=== PATIENT | female | born 1955 ===

== ENCOUNTER → 2016-07-05 | Outpatient (CLI) | payer OTHER | LOC: MAMMO 09:10 | DX: Z12.31 Encounter for screening mammogram for malignant neoplasm of breast (principal) | CPT/HCPCS: G0202 ==

== ENCOUNTER → 2017-12-18 | Outpatient (CLI) | payer OTHER | LOC: MAMMO 12-11 14:30 | DX: Z12.31 Encounter for screening mammogram for malignant neoplasm of breast (principal) ==

== ENCOUNTER → 2019-03-05 | Outpatient (CLI) | payer OTHER | LOC: MAMMO 15:15 | DX: Z13.820 Encounter for screening for osteoporosis (principal); M81.0 Age-related osteoporosis without current pathological fracture ==

== ENCOUNTER → 2019-11-10 | Day surgery (SDC) | payer OTHER | LOC: MSO 08:32 | DX: L72.11 Pilar cyst (principal); Z96.659 Presence of unspecified artificial knee joint; Z80.3 Family history of malignant neoplasm of breast; Z80.41 Family history of malignant neoplasm of ovary; Z88.0 Allergy status to penicillin; Z88.3 Allergy status to other anti-infective agents ==

== ENCOUNTER → 2020-08-31 | Outpatient (CLI) | payer OTHER | LOC: MAMMO 08:22 | DX: Z12.31 Encounter for screening mammogram for malignant neoplasm of breast (principal) ==

== ENCOUNTER → 2021-06-15 | Outpatient (CLI) | payer OTHER | LOC: MAMMO 09:15 → RAD 09:21 | DX: Z13.820 Encounter for screening for osteoporosis (principal); M81.0 Age-related osteoporosis without current pathological fracture ==

== ENCOUNTER → 2022-05-25 | Outpatient (CLI) | payer OTHER | LOC: MAMMO 09:05 | DX: Z12.31 Encounter for screening mammogram for malignant neoplasm of breast (principal) ==